=== PATIENT | male | born 2000 | race Asian ===

== ENCOUNTER 2022-12-23 12:20 | Outpatient (CLI) | payer OTHER, SELFPAY | END 2022-12-23 12:21 | disposition home or self-care (01) | PROVIDERS: Visit Provider Family Medicine | DX: Z00.00 Encounter for general adult medical examination without abnormal findings (principal); R73.09 Other abnormal glucose; R53.83 Other fatigue; G47.00 Insomnia, unspecified; Z13.6 Encounter for screening for cardiovascular disorders | CPT/HCPCS: 80048; 80061; 80076; 83036; 84443; 85025 ==

== ENCOUNTER 2023-01-02 11:26 | Outpatient (CLI) | payer OTHER, SELFPAY | END 2023-01-02 11:27 | disposition home or self-care (01) | PROVIDERS: Visit Provider Family Medicine | DX: R73.09 Other abnormal glucose (principal) | CPT/HCPCS: 82947; 83525; 84681; 86341 ==

== ENCOUNTER 2024-04-28 16:30 | Outpatient (CLI) | payer OTHER, SELFPAY | END 2024-04-28 16:31 | disposition home or self-care (01) | PROVIDERS: Visit Provider Registered Nurse | DX: E11.9 Type 2 diabetes mellitus without complications (principal); G47.00 Insomnia, unspecified; L65.9 Nonscarring hair loss, unspecified | CPT/HCPCS: 80053; 82728; 84443 ==

== ENCOUNTER 2024-04-29 11:29 | Outpatient (CLI) | payer OTHER, SELFPAY | END 2024-04-29 11:30 | disposition home or self-care (01) | LOC: NFLDREF 11:29 | PROVIDERS: PCP Registered Nurse; Visit Provider Registered Nurse | DX: E11.65 Type 2 diabetes mellitus with hyperglycemia (principal) | CPT/HCPCS: 82043; 82570 ==

== ENCOUNTER 2024-08-11 15:24 | Outpatient (CLI) | payer OTHER, SELFPAY | END 2024-08-11 15:25 | disposition home or self-care (01) | PROVIDERS: PCP Registered Nurse; Visit Provider Registered Nurse | DX: E11.65 Type 2 diabetes mellitus with hyperglycemia (principal); Z79.4 Long term (current) use of insulin; Z79.84 Long term (current) use of oral hypoglycemic drugs | CPT/HCPCS: 80053; 82043; 82570 ==